=== PATIENT | female | born 1965 | race Caucasian/White ===

== ENCOUNTER 2019-10-06 10:12 | Outpatient (CLI) | payer BC, SELFPAY ==
--- NOTE | ~2019-10-06 | MM_ITS ---
EXAMINATION: MM screening [facility] BI w giuseppe HISTORY: Screening mammogram TECHNIQUE: Craniocaudal and mediolateral oblique 3-D tomosynthesis images were obtained and synthetic 2-D images were generated. CAD analysis was submitted and interpreted. COMPARISON: No prior mammogram is available for comparison at this institution. BREAST PARENCHYMAL COMPOSITION: The breasts are heterogeneously dense, which may obscure small masses . FINDINGS: Possible approximately 4 x 6 mm mass in the posterior medial mid right breast (craniocaudal Tomosynthesis image 40/81; MLO Tomosynthesis image 43/76 and) Otherwise there is no evidence of suspicious mass, calcification, or architectural distortion to sugg est malignancy in either breast. There has been no other suspicious interval change. IMPRESSION: 1. Right breast mass 2. Diagnostic right mammogram and right breast ultrasound examination are recommended. BI-RADS Category 0: Incomplete: Needs additional imaging evaluation. Reviewed, dictated and finalized at location A. IMPRESSION: 1. Right breast mass 2. Diagnostic right mammogram and right breast ultrasound examination are recom mended. BI-RADS Category 0: Incomplete: Needs additional imaging evaluation.
== END 2019-10-06 10:13 | disposition home or self-care (01) ==
PROVIDERS: PCP Family Medicine; Visit Provider Family Medicine
DX: Z12.31 Encounter for screening mammogram for malignant neoplasm of breast (principal); R92.8 Other abnormal and inconclusive findings on diagnostic imaging of breast
CPT/HCPCS: 77063; 77067

== ENCOUNTER 2019-10-27 12:18 | Outpatient (CLI) | payer BC, SELFPAY ==
--- NOTE | ~2019-10-27 | MMUS_ITS ---
EXAMINATION: MM diagnostic mammo unilat RT, US breast RT limited HISTORY: 4 x 6 mm mass reported in posterior medial right breast TECHNIQUE: Additional 3-D tomosynthesis images of the right breast were performed and synthetic 2-D i mages were generated. CAD analysis was submitted and interpreted. High resolution upper inner right b reast ultrasound was performed. COMPARISON: 10/06/2019 bilateral digital screening mammogram FINDINGS: MAMMOGRAPHIC FINDINGS: A 5 mm circumscribed mass is suggested posteriorly in the upper inner right breast. Ultrasound of th e upper inner breast was performed. ULTRASOUND: 1:00 7 cm from nipple: 4.6 mm simple cyst with through transmission 1:00 3 cm from nipple: 3 mm cyst. No suspicious mass or shadowing is detected. IMPRESSION: 1. No mammographic evidence of malignancy 2. Annual mammographic screening is recommended. BI-RADS Category 2: Benign finding(s). Reviewed, dictated and finalized at location A. IMPRESSION: 1. No mammographic evidence of malignancy 2. Annual mammographic screening is recommended. BI-RADS Category 2: Benign finding(s).
== END 2019-10-27 12:19 | disposition home or self-care (01) ==
LOC: ANHIMG 12:19
PROVIDERS: PCP Family Medicine; Visit Provider Family Medicine
DX: R92.8 Other abnormal and inconclusive findings on diagnostic imaging of breast (principal)
CPT/HCPCS: 76642; 77065

== ENCOUNTER → 2020-12-26 17:26 | Outpatient (CLI) | payer BC, SELFPAY ==
--- NOTE | ~2020-12-26 | DEXA_ITS ---
Bone Density Report Name: Mary Pressley Age: 55 Sex: Female Ethnicity: White Date of : 1965 Indication: osteopenia; monitoring treatment; height loss; hysterectomy; Referring Provider: HUNTER, DREAD Ji Study: Bone densitometry was performed. Exam Date: December 26, 2020 Accession number: [id number] Bone Density: Region BMD T-score Z-score Classification AP Spine (L1-L4) 0.962 -0.8 0.5 Normal Femoral Neck (Left) 0.730 -1.1 0.1 Osteopenia Total Hip (Left) 0.873 -0.6 0.2 Normal Femoral Neck (Right) 0.681 -1.5 -0.3 Osteopenia Total Hip (Right) 0.810 -1.1 -0.3 Osteopenia Total Hip Mean 0.842 -0.9 -0.1 Normal World Health Organization criteria for BMD impression classify patients as: Normal (T-score at or above -1.0), Osteopenia (T-score between -1.0 and -2.5), or Osteoporosis (T-score at or below -2.5). 10-year Fracture Risk: FRAX not reported because: Treated for osteoporosis Previous Exams: Region Exam Age BMD T-score BMD Change BMD Change Date g/cm2 vs Baseline vs Previous AP Spine(L1-L4) 12/26/2020 55 0.962 -0.8 -0.054* -0.041* 07/15/2018 53 1.003 -0.4 -0.013 0.040* 10/26/2015 50 0.963 -0.8 -0.053* -0.053* 09/30/2013 48 1.016 -0.3 Total Hip(Left) 12/26/2020 55 0.873 -0.6 -0.025 0.019 07/15/2018 53 0.855 -0.7 -0.044* -0.013 10/26/2015 50 0.867 -0.6 -0.032* -0.032* 09/30/2013 48 0.899 -0.4 Total Hip(Right) 12/26/2020 55 0.810 -1.1 -0.032* 0.011 07/15/2018 53 0.799 -1.2 -0.043* -0.033* 10/26/2015 50 0.832 -0.9 -0.010 -0.010 09/30/2013 48 0.842 -0.8 *Denotes significance at 95% confidence level, LSC for AP Spine = 0.022 g/cm2, LSC for Total Hip = 0.027 g/cm2 Clinical Information Provided by Patient: Is being treated for osteoporosis Has used the following medications: HRT (i.e. estrogen/hormone therapy), Vitamin D Has the following medical conditions: Hysterectomy Patient maximum height was 63 Menopause Age: 49 Does not regularly consume dairy products Drinks caffeinated beverages Onset of menses at age 12 Number of children 2 Missed period for more than 6 months in a row Impression: The patient has low bone mass, based on the Right Femoral Neck T-score. The BMD for the AP Spine(L1-L4) decreased, changing by -0.041 since the last DXA
--- NOTE | ~2020-12-26 | MM_ITS ---
EXAMINATION: MM screening [facility] BI w giuseppe HISTORY: Screening mammogram TECHNIQUE: Craniocaudal and mediolateral oblique 3-D tomosynthesis images were obtained and synthetic 2-D images were generated. CAD analysis was submitted and interpreted. COMPARISON: 10/27/2019, 10/06/2019, 07/29/2018, 07/15/2018 BREAST PARENCHYMAL COMPOSITION: There are scattered areas of fibroglandular density. FINDINGS: There is no evidence of suspicious mass, calcification, or architectural distortion to sugg est malignancy in either breast. There has been no suspicious interval change. IMPRESSION: 1. No mammographic evidence of malignancy. 2. Recommend routine screening mammography in one year. BI-RADS Category 1: Negative Reviewed, dictated and finalized at location A.
== END ==
PROVIDERS: PCP Family Medicine; Visit Provider Family Medicine
DX: Z12.31 Encounter for screening mammogram for malignant neoplasm of breast (principal); Z78.0 Asymptomatic menopausal state; M85.852 Other specified disorders of bone density and structure, left thigh; M85.851 Other specified disorders of bone density and structure, right thigh
CPT/HCPCS: 77063; 77067; 77080

== ENCOUNTER → 2021-12-31 11:33 | Outpatient (CLI) | payer OTHER, SELFPAY ==
--- NOTE | ~2021-12-31 | MM_ITS ---
EXAMINATION: MM screening [facility] BI w giuseppe HISTORY: Screening mammogram TECHNIQUE: Craniocaudal and mediolateral oblique 3-D tomosynthesis images were obtained and synthetic 2-D images were generated. CAD analysis was submitted and interpreted. COMPARISON: 12/26/2020, 10/27/2019, 10/06/2019, 07/29/2018, 07/15/2018 BREAST PARENCHYMAL COMPOSITION: The breasts are heterogeneously dense, which may obscure small masses . FINDINGS: RIGHT BREAST: There is a mass in the far posterior third of the slightly outer breast 9 cm from the n ipple. LEFT BREAST: There is no suspicious mass, calcification, or architectural distortion to suggest malig alberto. There has been no significant interval change. IMPRESSION: 1. Indeterminate right breast mass. 2. Additional mammographic views and possible breast ultrasound are recommended. BI-RADS Category 2: Benign finding(s). Reviewed, dictated and finalized at location A. IMPRESSION: 1. Indeterminate right breast mass. 2. Additional mammographic views and possible breast ultrasound are recommended . BI-RADS Category 2: Benign finding(s).
== END ==
PROVIDERS: PCP Family Medicine; Visit Provider Family Medicine
DX: Z12.31 Encounter for screening mammogram for malignant neoplasm of breast (principal); R92.8 Other abnormal and inconclusive findings on diagnostic imaging of breast
CPT/HCPCS: 77063; 77067

== ENCOUNTER → 2022-01-22 07:42 | Outpatient (CLI) | payer OTHER, SELFPAY ==
--- NOTE | ~2022-01-22 | MMUS_ITS ---
EXAMINATION: MM diagnostic jose RT w giuseppe, US breast RT limited HISTORY: Right breast mass on screening mammogram TECHNIQUE: Additional 3-D tomosynthesis images of the right breast were performed and synthetic 2-D i mages were generated. CAD analysis was submitted and interpreted. High resolution limited right breas t ultrasound was performed. COMPARISON: 12/31/2021, 12/26/2020, 10/27/2019, 10/06/2019 FINDINGS: MAMMOGRAPHIC FINDINGS: There is a 6 mm obscured equal density mass in the posterior third of the outer breast at the 9:00 lo cation 9 cm from the nipple. There is a 6 mm obscured low density mass in the middle/posterior third of the outer breast at 8:00 location 6 cm from the nipple. ULTRASOUND: There are cysts at the 5:00 and 9:00 locations in the breast corresponding to the mammographic findin gs. There is a 10 mm x 5 mm irregular, parallel, hypoechoic mass with no posterior features or trestle mainternance laborer al vascularity at the 9:00 location 6 cm from the nipple. No definite mammographic correlate is ident ified for the mass. IMPRESSION: 1. Indeterminate sonographically detected mass at the 9:00 location 6 cm from the nipple. 2. Ultrasound-guided biopsy is recommended. BI-RADS category 4, suspicious findings. Reviewed, dictated and finalized at location A. IMPRESSION: 1. Indeterminate sonographically detected mass at the 9:00 location 6 cm from t he nipple. 2. Ultrasound-guided biopsy is recommended. BI-RADS category 4, suspicious findings.
== END ==
PROVIDERS: PCP Family Medicine; Visit Provider Family Medicine
DX: R92.8 Other abnormal and inconclusive findings on diagnostic imaging of breast (principal)
CPT/HCPCS: 76642; 77061; 77065; G0279

== ENCOUNTER 2022-02-02 12:32 | Outpatient (CLI) | payer OTHER, SELFPAY ==
--- NOTE | ~2022-02-02 | MMUS_ITS ---
EXAMINATION: US breast biopsy RT w image, MM post biopsy invasive RT DATE: 02/02/2022 14:04 (accession [id number]), 02/02/2022 14:05 (accession [id number]) INDICATION: Indeterminate mass in the outer right breast at the 9:00 location Ultrasound-guided core biopsy is requested to evaluate for malignancy. TECHNIQUE AND FINDINGS: The risks and potential benefits of the procedure were discussed with the patient including bleeding and infection. A time out was performed. The skin of the right breast was prepared and draped in usua l sterile fashion. 1% lidocaine was used for superficial anesthesia. 1% lidocaine with epinephrine wa s used for deep anesthesia. A vacuum-assisted biopsy needle was advanced through to the outer edge of the region of interest from a lateral approach utilizing sonographic guidance. A total of three tissue core samples were obtaine d through the lesion. A tissue marker clip was then placed at the biopsy site. Hemostasis was achieve d. A sterile bandage was applied. The patient tolerated procedure well and there was no evidence of immediate complication. The patient was given verbal instructions to return to the Emergency Department in the event of severe breast pa in or rapid breast enlargement. A two view right breast mammogram was obtained to document tissue mar ker clip placement. IMPRESSION: 1. Successful ultrasound-guided vacuum-assisted biopsy of right breast mass with tissue marker placem ent. Reviewed, dictated and finalized at location A. IMPRESSION: 1. Successful ultrasound-guided vacuum-assisted biopsy of right breast mass wit h tissue marker placement.
== END 2022-02-02 12:33 | disposition home or self-care (01) ==
PROVIDERS: PCP Family Medicine; Visit Provider Physician Assistant
DX: R92.8 Other abnormal and inconclusive findings on diagnostic imaging of breast (principal); N60.11 Diffuse cystic mastopathy of right breast
CPT/HCPCS: 19083; 88305; A4648

== ENCOUNTER 2023-04-22 07:28 | Outpatient (CLI) | payer OTHER, SELFPAY ==
--- NOTE | ~2023-04-22 | MM_ITS ---
EXAMINATION: MM screening [facility] BI w giuseppe HISTORY: Screening mammogram TECHNIQUE: Craniocaudal and mediolateral oblique 3-D tomosynthesis images were obtained and synthetic 2-D images were generated. CAD analysis was submitted and interpreted. COMPARISON: 02/02/2022 ultrasound-guided biopsy of right breast 01/22/2022 diagnostic right mammogram and limited right breast ultrasound 12/31/2021, 12/26/2020 bilateral screening mammogram examinations BREAST PARENCHYMAL COMPOSITION: The breasts are heterogeneously dense, which may obscure small masses . FINDINGS: Biopsy marker on the right, posterior outer mid right breast; history of benign biopsy resu lt. There is focal asymmetry in the posterior outer left breast on CC projection. Diagnostic left mammog stevie is recommended, with ultrasound if required. Otherwise there is no evidence of suspicious mass, calcification, or architectural distortion to sug gest malignancy in either breast. There has been no other suspicious interval change. IMPRESSION: 1. Asymmetric density in posterior outer left breast 2. Diagnostic left mammogram is recommended, with ultrasound if required BI-RADS Category 0: Incomplete: Needs additional imaging evaluation. Reviewed, dictated and finalized at location A. NESS BROKER
--- NOTE | ~2023-04-22 | DEXA_ITS ---
Bone Density Report Name: CAROLINA NORIEGA Age: 57 Sex: Female Ethnicity: White Date of : 1965 Indication: postmenopausal; screening for osteoporosis; height loss; hysterectomy; Referring Provider: EUN BUSTAMANTE Study: Bone densitometry was performed. Exam Date: April 22, 2023 Accession number: [id number] Bone Density: Region BMD T-score Z-score Classification AP Spine(L1-L4) 0.973 -0.7 0.7 Normal Femoral Neck (Left) 0.712 -1.2 0.0 Osteopenia Total Hip (Left) 0.859 -0.7 0.3 Normal Femoral Neck (Right) 0.643 -1.9 -0.6 Osteopenia Total Hip (Right) 0.816 -1.0 -0.1 Normal Total Hip Mean 0.837 -0.9 0.1 Normal World Health Organization criteria for BMD impression classify patients as: Normal (T-score at or above -1.0), Osteopenia (T-score between -1.0 and -2.5), or Osteoporosis (T-score at or below -2.5). 10-year Fracture Risk(1): Major Osteoporotic Fracture 9.0% Hip Fracture 1.0% Reported Risk Factors: [place] (), Neck BMD=0.643, BMI=25.7 (1) FRAX(R) Version 3.08. Fracture probability calculated for an untreated patient. Fracture probability may be lower if the patient has received treatment. Clinical Information Provided by Patient: Has used the following medications: Vitamin D Has the following medical conditions: Hysterectomy Patient maximum height was 63 Menopause Age: 49 Does not regularly consume dairy products Drinks caffeinated beverages Onset of menses at age 12 Number of children 2 Impression: The patient has low bone mass, based on the Right Femoral Neck T-score. The patient has an estimated ten-year risk of hip fracture of 1% and an estimated ten-year risk of major fracture of 9%, based on the WHO FRAX algorithm. Discussion: BONE DENSITY IS LOW AT ONE OR MORE SKELETAL SITES. This patient's lowest T-score is low at one or more skeletal sites. It meets the World Health Organization's (WHO) criteria for ?low bone mass? (T-score between -1.0 and -2.5). The patient's 10-year risk of fracture as calculated by FRAX is less than the threshold where pharmacological therapy is recommended by the National Osteoporosis Foundation (NOF). However, all treatment decisions require clinical judgment and consideration of individual patient factors, including patient preferences, comorbidities, previous drug use, risk factors not captured in the FRAX model (e.g., frailty, falls, vitamin D deficiency, increased bone turnover, interval significant decline in bone density) and possible under or overestimation of fracture risk by FRAX. The patient should follow a healthful lifestyle (good nutrition with adequate calcium and vitamin D, and appropriate weight-bearing exercise). Follow-Up: Consider repeating this study in 2 to 3 years to reassess this patient's status, or sooner if there is some new clinical indication. Reported by: JULIO CESAR on
== END 2023-04-22 07:29 | disposition home or self-care (01) ==
PROVIDERS: PCP Family Medicine; Visit Provider Family Medicine
DX: Z12.31 Encounter for screening mammogram for malignant neoplasm of breast (principal); Z78.0 Asymptomatic menopausal state; R92.8 Other abnormal and inconclusive findings on diagnostic imaging of breast; M85.852 Other specified disorders of bone density and structure, left thigh; M85.851 Other specified disorders of bone density and structure, right thigh
CPT/HCPCS: 77063; 77067; 77080

== ENCOUNTER 2023-05-21 12:13 | Outpatient (CLI) | payer OTHER, SELFPAY ==
--- NOTE | ~2023-05-21 | MMUS_ITS ---
EXAMINATION: MM diagnostic jose LT w giuseppe, US breast LT complete HISTORY: Follow-up left breast asymmetries TECHNIQUE: Additional 3-D tomosynthesis images of the left breast were performed and synthetic 2-D im ages were generated. CAD analysis was submitted and interpreted. High resolution complete left breast ultrasound was performed. COMPARISON: Comparison to multiple prior studies sequentially, with oldest reviewed study dated 12/26. BREAST PARENCHYMAL COMPOSITION: The breasts are heterogeneously dense, which may obscure small masses FINDINGS: MAMMOGRAPHIC FINDINGS: There are scattered asymmetries in the left breast without discrete mass. No suspicious architectural distortion or clustered calcifications. ULTRASOUND: Complete US of all 4 quadrants of the left breast and retroareolar region was reviewed. There are mul tiple cysts of the left breast including a complicated cyst at 1:00 near the nipple measuring 6 mm. At 4:00, 4 cm from the nipple there is an irregular shaped heterogeneous hypoechoic mass measuring 7 mm without posterior features. IMPRESSION: 1. Abnormal irregular shape 7 mm left breast mass at 4:00, 4 cm from the nipple. 2. Ultrasound-guided left breast biopsy recommended. BI-RADS category 4, suspicious findings. Reviewed, dictated and finalized at location A. RT FREIGHT MANAGER IMPRESSION: 1. Abnormal irregular shape 7 mm left breast mass at 4:00, 4 cm from the nipple . 2. Ultrasound-guided left breast biopsy recommended. BI-RADS category 4, suspicious findings.
== END 2023-05-21 12:14 | disposition home or self-care (01) ==
LOC: ANHIMG 12:15
PROVIDERS: PCP Family Medicine; Visit Provider Family Medicine
DX: R92.8 Other abnormal and inconclusive findings on diagnostic imaging of breast (principal)
CPT/HCPCS: 76641; 77061; 77065; G0279

== ENCOUNTER 2023-06-09 08:54 | Outpatient (CLI) | payer OTHER, SELFPAY ==
--- NOTE | ~2023-06-09 | US_ITS ---
US axilla LT DATE: 06/09/2023 10:01 INDICATION: Unspecified left breast lump TECHNIQUE: Real-time imaging of the left axillary soft tissues COMPARISON: None FINDINGS: No suspicious mass or shadowing, adenopathy or other significant abnormality is detected. IMPRESSION: Negative Reviewed, dictated and finalized at Location A. Reviewed, dictated and finalized at location B. 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
--- NOTE | ~2023-06-09 | US_ITS ---
US breast LT limited DATE: 06/09/2023 09:58 INDICATION: Patient presented for ultrasound-guided biopsy of left breast 4:00 lesion 4 cm from nippl e TECHNIQUE: Real-time and color flow imaging targeted at left breast 4:00 4 cm from nipple COMPARISON: 05/21/2023 diagnostic left mammogram and complete left breast ultrasound 04/22/2023 bilateral screening mammogram FINDINGS: The technologist scanned the patient. The radiologist was present as well during additional scanning, with demonstration of the findings to the patient. There is a smooth circumscribed area of mixed somewhat tubular hypoechoic echogenicity and intervening areas hyperechogenicity consistent wi th fat, without suspicious shadowing or suspicious vascularity. The area has a benign appearance. The re are no suspicious sonographic features for malignancy. IMPRESSION: BI-RADS Category 2: Benign Recommendation: Routine annual mammographic screening Reviewed, dictated and finalized at Location A. Reviewed, dictated and finalized at location A. ROAD BRAKE OPERATOR
== END 2023-06-09 08:55 | disposition home or self-care (01) ==
LOC: ANHIMG 08:56
PROVIDERS: PCP Family Medicine; Visit Provider Surgery
DX: R92.8 Other abnormal and inconclusive findings on diagnostic imaging of breast (principal); N63.20 Unspecified lump in the left breast, unspecified quadrant
CPT/HCPCS: 76642; 76882

== ENCOUNTER 2023-09-09 10:14 | Outpatient (CLI) | payer OTHER, SELFPAY ==
--- NOTE | ~2023-09-09 | MMUS_ITS ---
EXAMINATION: MM diagnostic jose LT w giuseppe, US breast LT complete HISTORY: Follow-up of 4:00 7 mm mass TECHNIQUE: ML, MLO and CC 3-D tomosynthesis images of the left breast were performed and synthetic 2- D images were generated. CAD analysis was submitted and interpreted. High resolution complete left br east ultrasound examination including all 4 quadrants and subareolar area was performed. COMPARISON: June 09, 2023 Limited left breast ultrasound 05/21/2023 diagnostic left mammogram incomplete left breast ultrasound 04/22/2023 bilateral screening mammogram 8. Slice bilateral screening mammogram BREAST PARENCHYMAL COMPOSITION: The breasts are heterogeneously dense, which may obscure small masses . FINDINGS: MAMMOGRAPHIC FINDINGS: No suspicious mammographic mass or architectural distortion, malignant calcification, skin thickening or retraction or significant new or developing density is detected. ULTRASOUND: There are scattered simple and septated cysts. No suspicious solid mass or suspicious shadowing is de tected. IMPRESSION: 1. No evidence of malignancy 2. Routine annual mammographic screening is recommended BI-RADS Category 2: Benign finding(s). Reviewed, dictated and finalized at location B. IMPRESSION: 1. No evidence of malignancy 2. Routine annual mammographic screening is recommended BI-RADS Category 2: Benign finding(s).
== END 2023-09-09 10:15 | disposition home or self-care (01) ==
PROVIDERS: PCP Family Medicine; Visit Provider Surgery
DX: R92.8 Other abnormal and inconclusive findings on diagnostic imaging of breast (principal); N63.20 Unspecified lump in the left breast, unspecified quadrant
CPT/HCPCS: 76641; 77061; 77065; G0279

== ENCOUNTER 2024-05-30 11:17 | Outpatient (CLI) | payer OTHER, SELFPAY ==
--- NOTE | ~2024-05-30 | MMUS_ITS ---
EXAMINATION: MM diagnostic jose BI w giuseppe, US breast LT complete HISTORY: Left breast mass TECHNIQUE: Additional 3-D tomosynthesis images of the left breast were performed and synthetic 2-D im ages were generated. CAD analysis was submitted and interpreted. High resolution complete left breast ultrasound was performed. COMPARISON: Comparison to multiple prior studies sequentially, with oldest reviewed study dated 12/31. BREAST PARENCHYMAL COMPOSITION: Dense: The breasts are heterogeneously dense, which may obscure small masses FINDINGS: MAMMOGRAPHIC FINDINGS: The right breast is stable without evidence for malignancy. Nodular asymmetries in the left breast lo cated centrally are less apparent with current study. There is no suspicious architectural distortion or clustered calcifications. ULTRASOUND: Complete US of all 4 quadrants of the left breast/s and retroareolar region was reviewed. At 12:00, 2 cm from the nipple there is an oval parallel oriented hypoechoic mass measuring 6 mm with low-level internal echoes, likely benign. At 1:00 near the nipple is a cluster of microcysts measuring 7 mm. At 4:00, 5 cm from the nipple there is a cluster of microcysts measuring 8 mm. At 4:00, 4 cm from the n ipple there is a small cluster of microcysts. IMPRESSION: 1. Likely benign left breast mass located at 12:00, 2 cm from the nipple, which appears different in morphology compared with prior examination. This mass measures 6 mm with low-level internal echoes. 2. Recommend 6 month follow-up Limited left breast ultrasound. BI-RADS category 3, probably benign findings. Reviewed, dictated and finalized at location [facility] IMPRESSION: 1. Likely benign left breast mass located at 12:00, 2 cm from the nipple, which appears different in morphology compared with prior examination. This mass edy sures 6 mm with low-level internal echoes. 2. Recommend 6 month follow-up Limited left breast ultrasound. BI-RADS category 3, probably benign findings.
--- OUTSIDE RECORDS SUMMARY | 2024-05-30 12:27 | XMS_ITS | Continuity of Care Document ---
Author Organization [facility] Address [address] [place] [address] Phone Care Team Providers Care Interventional Radiology Tech Name Role Phone Pruitt OD, Unavailable Unavailable Procedures Procedure Date Eye Exam & Treatment Refraction Eye Exam, New Patient Refraction Advance Directives Directive Yes / No Effective Date File Name No Information Encounters Encounter Description Practice Location Reason(s) For Visit Diagnoses Date Provider Providers Copied on Encounter [facility], [address] [place] [address] [address], [place], [place], [id number], tel:[phone] [facility] No Information Mar-2 0-201 0 Pruitt OD . [address], [place], [address], [place]. tel:[phone] [facility], [address] [place] [address] [address], [place], [place], [id number], tel:[phone] [facility] No Information Mar-0 7-200 9 Pruitt OD . [address], [place], [address], [place]. tel:[phone] Family History Family Member Type Diagnosis Age At Onset No Information Payers Payer name Insurance type Covered constitution party ID Authoriza tielzbieta(s) [employer] Plan 09 [id number] Social History Type Description Quantity Date Captured Comments Sex Female Smoking Status No Information Chief Complaint And Reason For Visit No Information Reason For Referral Reason For Referral No Information History Of Present Illness Encounter Date Complaint History Of Prese nt Illness No Information Functional Status Date Functional Assessmen t No Information Instructions Date Instruction Additional Infor mation No Information Assessments Type Assessment Date No Information Patient Care Teams Name Effective Dates (start - stop) Status Members No Information
--- OUTSIDE RECORDS SUMMARY | 2024-05-30 12:27 | XMS_ITS | CONTINUITY OF CARE DOCUMENT ---
Author Name louis myers Address Unknown Organization [facility] Address [address] [place] [address] Phone [phone] Care Team Providers Care Field Operations Coordinator Name Role Phone louis myers Unavailable Unavailable
--- OUTSIDE RECORDS SUMMARY | 2024-05-30 12:27 | XMS_ITS | Referral Summary ---
Author Organization [facility] Address [address] [place] [address] Care Team Providers Care Dope House Operator Helper Name Role Phone Irena Robin MD Primary Care Provider + Allergies No known active allergies Medications cholecalciferol (VITAMIN D-3) 2,000 unit tablet Take 2,000 Units by mouth daily. Active Active Problems Problem Noted Date Diagnosed Date NICK (dyspnea on exertion) 09/20/2017 Palpitations 09/20/2017 Elevated blood pressure read ing in office without diagnosis of hypertension 09/20/2017 Dyslipidemia 09/20/2017 Social History Tobacco Use Types Packs/Day Years Used Date Smoking Tobacco: Never Smokeless Tobacco: Never Alcohol Use Standard Drinks/Week Comments Yes 0 (1 standard drink = 0.6 oz pur e alcohol) very rarely Personal Safety Answer Date Recorded Getting School Help Needed Not on file 07/16 Comments Unknown Sex and Gender Information Value Date Recorded Sex Assigned at Not on file Legal Sex Female 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 Gender Identity Not on file Sexual Orientation Not on file Last Filed Vital Signs Vital Sign Reading Time Taken Comments Blood Pressure 136/80 09/20/2017 1:11 PM CDT Pulse 97 09/20/2017 1:11 PM CDT Temperature - - Respiratory Rate - - Oxygen Saturation 98% 09/20/2017 1:11 PM CDT Inhaled Oxygen Concentration - - Weight 68.5 kg (151 lb) 09/20/2017 1:11 PM CDT Height 157.5 cm (5' 2 ) 09/20/2017 1:11 PM CDT Body Mass Index 27.62 09/20/2017 1:11 PM CDT Plan of Treatment Not on file Insurance [employer] [place] [address] Care Teams Dope House Operator Helper Relationship Specialty Start Date End Date Irena Robin MD PCP - General 09/08/17
--- OUTSIDE RECORDS SUMMARY | 2024-05-30 12:27 | XMS_ITS | Clinical Summary ---
Author Organization [facility] [place] Address [address] [place] [address] Phone Care Team Providers Care Hvac/R Instructor Name Role Phone Unavailable Primary Care Provider Unavailabl e Allergies No known active allergies Medications No known medications Active Problems Patient Care Coordination No te Formatting of this note migh t be different from the original. Primary Care: No primary provider on file. Referring Provider: Nila Rizzo [address] [facility] [address] [place] [address] Other: Problem Noted Date Diagnosed Date Breast mass 02/02/2011 History of skin cancer Family History Medical History Relation Name Comments Breast Cancer Maternal Cousin Relation Name Status Comments Maternal Cousin Alive Social History Tobacco Use Types Packs/Day Years Used Date Smoking Tobacco: Never Smokeless Tobacco: Never Alcohol Use Standard Drinks/Week Comments Yes 0 (1 standard drink = 0.6 oz pur e alcohol) rare Comments No Sex and Gender Information Value Date Recorded Sex Assigned at Not on file 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 Gender Identity Not on file Sexual Orientation Not on file Last Filed Vital Signs Vital Sign Reading Time Taken Comments Blood Pressure 140/76 02/02/2011 10:23 AM CDT Pulse - - Temperature - - Respiratory Rate - - Oxygen Saturation - - Inhaled Oxygen Concentration - - Weight 62.1 kg (137 lb) 02/02/2011 10:23 AM CDT Height 160 cm (5' 3 ) 02/02/2011 10:23 AM CDT Body Mass Index 24.27 02/02/2011 10:23 AM CDT Plan of Treatment Health Maintenance Due Date Last Done Comments DTAP/TDAP/TD VACCINES (1 - Tdap) 1982 CERVICAL CANCER SCREENING 1993 COLORECTAL SCREENING 2008 Colorectal Cancer Screening 2008 FIT-DNA Q 3 years 2008 FIT/FOBT Q 1 year 2008 Flex Sig/CT Colonography Q 5 years 2008 BREAST CANCER SCREENING 01/24/2012 01/24/20 11, 04/29/2009, 02/13/2008 ZOSTER VACCINE (1 of 2) 2013 INFLUENZA VACCINE (#1) 2023 RSV VACCINE (60+ or ) (1 - 1-dose 75+ series) 2038 HEPATITIS B VACCINES Aged Out No long er eligible based on patient's age to complete this topic PNEUMOCOCCAL VACCINE 0-64 YEARS Aged Out No longer eligible b ased on patient's age to complete this topic Procedures Procedure Name Priority Date/Time Associated Diagnosis Comments MAMMO SCREEN BILAT W OR WO CAD Routine 01/23/2011 from Last 3 Months or Most Recently Relevant to Health Maintenance Results * MAMMO DIGITAL SCREEN BILAT (01/23/2011) Anatomical Region Laterality Modality Breast Bilateral Other Nila Rizzo MD MAMMO ORDERABLES Final R esult from Last 3 Months or Most Recently Relevant to Health Maintenance Insurance
--- OUTSIDE RECORDS SUMMARY | 2024-05-30 12:27 | XMS_ITS | Patient Health Summary ---
Author Organization [facility] Address [address] [place] [address] Care Team Providers Care Planning Specialist Name Role Phone Unavailable Primary Care Provider Unavailabl e Note from [facility],non-owned Affiliates and Associated Physician Practices is amultiple site organization consisting of ambulatory clinics and hospital sitesin [place], [place], [place] and [place]. This disclosure is being madepursuant to the Care Everywhere program and may not contain all information available regarding this patient. Last updated 18.[facility] Social History Tobacco Use Types Packs/Day Years Used Date Smoking Tobacco: Never Assessed Sex and Gender Information Value Date Recorded Sex Assigned at Not on file Gender Identity Not on file Sexual Orientation Not on file Procedures * FROZEN SECTION(Performed 07/27/1996) Results * FROZEN SECTION (07/27/1996 9:02 AM TRADES HELPER) Result CASE NUMBER [id number] Comment: ORDERING PHYSICIAN ??SANGEETA CASILLAS SPECIMEN TYPE ?Lesion-lip rt side Date ? 07/27/1996 Physician ?Angela Casillas Gross Description ? A specimen is received fresh for frozen section examination and labeled with the patient's name and identified as skin ellipse from lip, right side . ??The specimen consists of a skin ellipse which measures 2 cm x 0.7 x 0.5 cm, centrally located are small oval round reddish lesion is present. ??This lesion measures approximately 0.2 cm in diameter. ??The surgical margins were inked and the tissue was sectioned in classic method and submitted as A, cross section through the center of the skin ellipse, including the lesion as B ??tips of the skin ellipse. ??JW/kn Microscopic Exam ? Microscopic examination of the sections FSA and B reveal a basal cell carcinoma. ??Margins of excision free of tumor involvement. ?? Diagnosis ? I. ??Cutaneous tissue, lip, right side ? A. ??Basal cell carcinoma. ? B. ??Complete excision. ?? *Snomed Code 1 ? [id number] - [id number] Boiler House Inspector ? kn Pathologist ?Cosme Villa M.D. MISCELLANEOUS SAMPLES / Unknown 07/27/1996 9:02 AM TRADES HELPER 07/27/1996 9:02 AM TRADES HELPER Historical Provider LAB - PATHOLOGY/C YTOLOGY ORDERABLES
--- OUTSIDE RECORDS SUMMARY | 2024-05-30 12:27 | XMS_ITS | Referral Summary ---
Author Organization [facility] Address [address] [place] [address] Care Team Providers Care Copywriting Intern Name Role Phone Unavailable Primary Care Provider Unavailabl e Source Comments [facility],non-owned Affiliates and Associated Physician Practices is amultiple site organization consisting of ambulatory clinics and hospital sitesin [place]. This disclosure is being madepursuant to the Care Everywhere program and may not contain all information available regarding this patient. Last updated 18.[facility] Social History Tobacco Use Types Packs/Day Years Used Date Smoking Tobacco: Never Assessed Sex and Gender Information Value Date Recorded Sex Assigned at Not on file Gender Identity Not on file Sexual Orientation Not on file Plan of Treatment Not on file
--- OUTSIDE RECORDS SUMMARY | 2024-05-30 12:27 | XMS_ITS | Clinical Summary ---
Author Organization [facility] Address [address] [place] [address] Care Team Providers Care Regional Wildlife Agent Name Role Phone Irena Robin MD Primary Care Provider + Allergies No known active allergies Medications cholecalciferol (VITAMIN D-3) 2,000 unit tablet Take 2,000 Units by mouth daily. Active Active Problems Problem Noted Date Diagnosed Date NICK (dyspnea on exertion) 09/20/2017 Palpitations 09/20/2017 Elevated blood pressure read ing in office without diagnosis of hypertension 09/20/2017 Dyslipidemia 09/20/2017 Surgical History Surgery Date Site/Laterality Comments [place] TONSILLECTOMY PRIMARY/SECONDARY <AGE 12 Tonsillectomy - (Added by Conv) [place] LIG/TRNSXJ FLP TUBE ABDL/ VAG APPR UNI/BI Tubal Ligation - (Added by TW Conv) WA LAPS ABD PRTM&OMENTUM DX W/WO SPEC BR/WA SPX Laparoscopy (Diagnostic) - (Added by TW Conv) [place] UNLISTED PROCEDURE ABDOME N PERITONEUM & OMENTUM Hernia Repair - (Added by TW Conv) HYSTERECTOMY FLUORO GUIDED INJECTION LATASHAU LUÍSER RIGHT 12/29/2018 Right Medical History Medical History Date Comments Basal cell carcinoma Squamous cell carcinoma Family History Medical History Relation Name Comments Hypertension Father Family history of hypertension - (Added by TW Conv) Hypertension Mother Family history of hypertension - (Added by TW Conv) Relation Name Status Comments Father Mother Social History Tobacco Use Types Packs/Day Years [...] on file 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 Gender Identity Not on file Sexual Orientation Not on file Obstetrics History Last Filed Vital Signs Vital Sign Reading [...] 09/20/2017 1:11 PM CDT Plan of Treatment Health Maintenance Due Date Last Done Comments Colon Cancer Screening-Colonoscopy 1963 Depression Screening 1963 Hepatitis C Screening 1963 Hepatitis B Screening 1981 Regular Well Visit/Exam 18-64 1981 Breast Cancer Screening-Mammogram 01/24/2012 01/23/2011, 01/23/2011 Zoster Vaccine (1 of 2) 2013 Covid-19 Vaccine (2023-2 5 season) 2024 03/11/2021, 07/18/2020, 06/27/2020 Influenza Vaccine (#1) 2024 2, 04/08/2020 DTaP/Tdap/Td Vaccine (2 - Td or Tdap) 09/15/2026 09/15/2016, 03/28/2001 Pneumococcal vaccine <65 Aged Out No longer eligible based on patient's age to complete this topic Insurance [facility] ACC[facility] Care Teams Regional Wildlife Agent Relationship Specialty Start Date End Date Irena Robin MD PCP - General 09/08/17
--- OUTSIDE RECORDS SUMMARY | 2024-05-30 12:27 | XMS_ITS | Clinical Summary ---
Author Organization [facility] Address [address] [place] [address]. [place], [place] [address] [place] [address] Care Team Providers Care Urgent Care Technician Name Role Phone Liliana Kaur NP Primary Care Provider [phone] Allergies No known active allergies Medications NON FORMULARY Active progesterone (PROMETRIUM) 200 MG capsule Take 200 mg by mouth daily. Active NON FORMULARY Estrogen 1.75mg capsule (bioidentical) Active NON FORMULARY Thyroid 1.75mg qd Active Nutritional Supplements (DHEA OR) Take 5 mg by mouth daily. Active vitamin D3, cholecalciferol , 5000 UNITS capsule Take 1 capsule by mouth daily. Active NON FORMULARY Testosterone topical cream 35mg Active Active Problems Problem Noted Date Diagnosed Date History of skin cancer 04/15/2022 Dyslipidemia 09/20/2017 Elevated blood pressure read ing in office without diagnosis of hypertension 09/20/2017 Immunizations Name Administration Dates Next Due Fluzone 6 Months+ Quad (0.5 mL Prefilled Syringe ) 04/15/2022 Influenza Adult (Generic) 04/08/2020 Td (TDVAX) 03/28/2001 Tdap (Generic) 09/15/2016 Social History Tobacco Use Types Packs/Day Years Used Date Smoking Tobacco: Never Smokeless Tobacco: Never Tobacco Cessation:Counseling Given: Not Answered Alcohol Use Standard Drinks/Week Comments Not Currently 0 (1 standard drink = 0.6 oz pur e alcohol) PHQ-2 Answer Date Recorded Patient Health Questionnaire-2 Score 0 04/15/2022 Comments No Sex and Gender Information Value Date Recorded Sex Assigned at Not on file 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 Sex Female 12:50 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 Gender Identity Not on file Sexual Orientation Not on file Last Filed Vital Signs Vital Sign Reading Time Taken Comments Blood Pressure 138/86 04/15/2022 10:22 AM STRUCTURAL IRON ERECTOR ma nual cuff Pulse 93 04/15/2022 10:22 AM STRUCTURAL IRON ERECTOR Temperature 36.9 ??C (98.5 ??F) 04/15/2022 10:[address] Respiratory Rate 16 04/15/2022 10:22 AM STRUCTURAL IRON ERECTOR Oxygen Saturation 99% 04/15/2022 10:22 AM STRUCTURAL IRON ERECTOR Inhaled Oxygen Concentration - - Weight 68.5 kg (151 lb) 04/15/2022 10:22 AM STRUCTURAL IRON ERECTOR Height 160 cm (5' 3 ) 04/15/2022 10:22 AM STRUCTURAL IRON ERECTOR Body Mass Index 26.75 04/15/2022 10:22 AM STRUCTURAL IRON ERECTOR Plan of Treatment Health Maintenance Due Date Last Done Comments Colorectal Cancer Screening Colonoscopy (10 Years) 1963 PHQ-2 (Physician Prosser) 1975 Hepatitis C 1981 Zoster Vaccines (1 of 2) 2013 Annual Physical 04/15/2023 04/15/2022 COVID-19 Vaccine (4 - 2023-2 5 season) 2024 03/11/2021, 07/18/2020, 06/27/2020 Mammogram Screening 01/23/2024 01/22/2022, 12/31/2021 Influenza Adult (#1) 2024 04/15/2022, 04/08/2020 PHQ-2 (Physician [employer]) 05/03/2024 DTaP, Tdap and Td Vaccines ( 2 - Td or Tdap) 09/15/2026 09/15/2016, 03/28/2001 RSV Immunization or 60+ Years (1 - 1-dose 75+ series) 2038 Meningococcal B Vaccine Aged Out No l onger eligible based on patient's age to complete this topic Meningococcal Vaccine Aged Out No ana miguel eligible based on patient's age to complete this topic Pneumococcal Vaccine: Pediatrics (0 to 5 Years) and At-Risk Patients (6 to 64 Years) Aged Out No longer eligible b ased on patient's age to complete this topic RSV Immunizations Under 20 Months Aged Out No longer eligible b ased on patient's age to complete this topic Procedures Procedure Name Priority Date/Time Associated Diagnosis Comments MAMMOGRAM GENERIC (SCAN ORDER) 01/22/2022 from Last 3 Months or Most Recently Relevant to Health Maintenance Results * MAMMOGRAM GENERIC (01/22/2022) Anatomical Region Laterality Modality Other 01/22/2022 us Doc Med Group Scanned SCANNING Final Resu lt from Last 3 Months or Most Recently Relevant to Health Maintenance Insurance [facility] Care Teams Urgent Care Technician Relationship Specialty Start Date End Date Liliana Kaur NP [address] [place] [address] PCP - General NURSE PRACTITIONER 10/04/22
--- OUTSIDE RECORDS SUMMARY | 2024-05-30 12:27 | XMS_ITS | Clinical Summary ---
Author Organization [facility] Address [address] [place] [address] Care Team Providers Care Custom Clothier Name Role Phone Unavailable Primary Care Provider Unavailabl e Source Comments [facility],non-owned Affiliates and Associated Physician Practices is amultiple site organization consisting of ambulatory clinics and hospital sitesin [place], [place] and [place]. This disclosure is being madepursuant to the Care Everywhere program and may not contain all information available regarding this patient. Last updated 18.[facility] Social History Tobacco Use Types Packs/Day Years Used Date Smoking Tobacco: Never Assessed Sex and Gender Information Value Date Recorded Sex Assigned at Not on file Gender Identity Not on file Sexual Orientation Not on file Plan of Treatment Health Maintenance Due Date Last Done Comments COLOGUARD (AGES 45-75) - COL ON CA SCREENING 1963 COLON MONITORING 1963 COLONOSCOPY - COLON CA SCREENING 1963 CT COLONOGRAPHY - COLON CA SCREENING 1963 Colorectal Cancer Screening 1963 FIT - COLON CA SCREENING 1963 FLEX SIG - COLON CA SCREENING 1963 LIPID TESTING 1963 MAMMOGRAM 1963 PAP SMEAR 1963 HIV SCREENING 1978 HEPATITIS C SCREENING 06/11/1981 DTAP/TDAP/TD VACCINES (1 - Tdap) 1982 PNEUMOCOCCAL VACCINE 50+ (1 of 1 - PCV) 2013 ZOSTER VACCINE (1 of 2) 2013 COVID-19 VACCINE ( - 2023-2 5 season) 2024 INFLUENZA VACCINE (#1) 2024 DEPRESSION SCREENING 05/03/2024 Respiratory Syncytial Virus (RSV) Vaccine Pt: or over 60 yrs (1 - 1-dose 75+ series) 2038 HEPATITIS B VACCINE Aged Out No longe r eligible based on patient's age to complete this topic HIB VACCINE Aged Out No longer eligi ble based on patient's age to complete this topic HPV VACCINE Aged Out No longer eligi ble based on patient's age to complete this topic MENINGOCOCCAL (Group B) VACCINE Aged Out No longer eligible based on patient's age to complete this topic MENINGOCOCCAL VACCINE Aged Out No ana miguel eligible based on patient's age to complete this topic PNEUMOCOCCAL VACCINE Aged Out No long er eligible based on patient's age to complete this topic
== END 2024-05-30 11:18 | disposition home or self-care (01) ==
LOC: ANHIMG 11:18
PROVIDERS: PCP Family Medicine; Visit Provider Surgery
DX: R92.8 Other abnormal and inconclusive findings on diagnostic imaging of breast (principal); N63.22 Unspecified lump in the left breast, upper inner quadrant
CPT/HCPCS: 76641; 77062; 77066; G0279

== ENCOUNTER 2024-10-30 11:02 | Outpatient (CLI) | payer OTHER, SELFPAY ==
--- NOTE | ~2024-10-30 | US_ITS ---
EXAMINATION TYPE: US breast LT limited COMPARISON: 05/30/2024 REASON FOR STUDY: N63.25 - Unspecified lump in the left breast, overlapping... TECHNIQUE: Targeted sonographic evaluation of the left breast was performed. INTERPRETATION: At the 12:00 position left breast, 2 cm in the upper, there is a 6 x 7 x 3 mm hypoechoic masses is wi uma than tall. Several additional adjacent more rounded cysts or smaller hypoechoic masses are also p resent in this region. IMPRESSION: 6 x 7 x 3 mm hypoechoic mass at 12:00 position left breast, 2 cm unremarkable, with somewhat differen t morphology, but no overtly aggressive imaging features or significant increase in size. Additional six-month follow-up ultrasound advised. BI-RADS CATEGORY: BI-RADS 3: Probably benign. Six-month follow-up exam recommended Reviewed, dictated and finalized at location . IMPRESSION: 6 x 7 x 3 mm hypoechoic mass at 12:00 position left breast, 2 cm unremarkable, with somewhat different morphology, but no overtly aggressive imaging features or significant increase in size. Additional six-month follow-up ultrasound advi sed. BI-RADS CATEGORY: BI-RADS 3: Probably benign. Six-month follow-up exam recommended
--- OUTSIDE RECORDS SUMMARY | 2024-10-30 11:41 | XMS_ITS | Continuity of Care Document ---
Author Organization [facility] Address [address] [place] [address] Phone Care Team Providers Care Electric Stove Mechanic Name Role Phone Pruitt OD, Unavailable Unavailable Procedures Procedure Date Eye Exam & Treatment Refraction Eye Exam, New Patient Refraction Advance Directives Directive Yes / No Effective Date File Name No Information Encounters Encounter Description Practice Location Reason(s) For Visit Diagnoses Date Provider Providers Copied on Encounter [facility], [address] [place] [address] [address], [place], [place], [id number], tel:[phone] [facility] No Information Mar-2 0-201 0 Pruitt OD . [address], [place], [address], [place]. tel:[phone] [facility], [address] [place] [address] [address], [place], [place], [id number], tel:[phone] [facility] No Information Mar-0 7-200 9 Pruitt OD . [address], [place], [address], [place]. tel:[phone] Family History Family Member Type Diagnosis Age At Onset No Information Payers Payer name Insurance type Covered republican ID Authoriza tielzbieta(s) [employer] Plan 09 [id number] Social History Type Description Quantity Date Captured [...]
--- OUTSIDE RECORDS SUMMARY | 2024-10-30 11:41 | XMS_ITS | Clinical Summary ---
Author Organization [facility] [place] Address [address] [place] [address] Phone Care Team Providers Care Academic Coach Name Role Phone Unavailable Primary Care Provider Unavailabl e Allergies No known active allergies Medications No known medications Active Problems Patient Care Coordination No te Formatting of this note migh t be different from the original. Primary Care: No primary provider on file. 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 Gender Identity Not on file Sexual Orientation Not on file Last Filed Vital Signs Vital Sign Reading Time Taken Comments Blood Pressure 140/76 02/02/2011 10:23 AM CDT Pulse - - Temperature - - Respiratory Rate - - Oxygen Saturation - - Inhaled Oxygen Concentration - - Weight 62.1 kg (137 lb) 02/02/2011 10:23 AM CDT Height 160 cm (5' 3) 02/02/2011 10:23 AM CDT Body Mass Index 24.27 02/02/2011 10:23 AM CDT Plan of Treatment Health Maintenance Due Date Last Done Comments DTAP/TDAP/TD VACCINES (1 - Tdap) 1982 HPV/Cotest (21-29) 1984 CERVICAL CANCER SCREENING 1993 HPV/Cotest (30-65) 1993 PAP SMEAR 1993 COLORECTAL SCREENING 2008 Colorectal Cancer Screening 2008 FIT-DNA Q 3 years 2008 FIT/FOBT Q 1 year 2008 Flex Sig/CT Colonography Q 5 years 2008 BREAST CANCER SCREENING 01/24/2012 01/24/20 11, 04/29/2009, 02/13/2008 ZOSTER VACCINE (1 of 2) 2013 INFLUENZA VACCINE (#1) 2023 RSV VACCINE (60+ or ) (1 - 1-dose 75+ series) 2038 Procedures Procedure Name Priority Date/Time Associated Diagnosis Comments MAMMO SCREEN BILAT W OR WO CAD Routine 01/23/2011 from Last 3 Months or Most Recently Relevant to Health Maintenance Results * MAMMO DIGITAL SCREEN BILAT (01/23/2011) Anatomical Region Laterality Modality Breast Bilateral Other Nila Rizzo MD MAMMO ORDERABLES Final R esult from Last 3 Months or Most Recently Relevant to Health Maintenance Insurance Member Subscriber Plan / Payer (Ef fective 2020-Present) Name:Mary Pressley Relation to Subscriber:Spouse Name:MAXIME PRESSLEY Date of :1958 (Home) Address: [address] [place] [address] Payer ID:[id number] (NAIC) Type:[facility] Address: [facility] [id number] [place] [address]
--- OUTSIDE RECORDS SUMMARY | 2024-10-30 11:41 | XMS_ITS | Clinical Summary ---
Author Organization [facility] Address [address] [place] [address] Care Team Providers Care Wheat Farmer Name Role Phone Unavailable Primary Care Provider Unavailabl e Source Comments [facility],non-owned Affiliates and Associated Physician Practices is amultiple site organization consisting of ambulatory clinics and hospital sitesin [place], [place]. This disclosure is being madepursuant to the Care Everywhere program and may not contain all information available regarding this patient. Last updated 18.[facility] Social History Tobacco Use Types Packs/Day Years Used Date Smoking Tobacco: Never Assessed Comments Unknown Sex and Gender Information Value Date Recorded Sex Assigned at Not on file Legal Sex Female 6:17 AM CHILD CARE ASSOCIATE Gender Identity Not on file Sexual Orientation [...] SCREENING 1963 LIPID TESTING 1963 MAMMOGRAM 1963 HIV SCREENING 1978 HEPATITIS C SCREENING 06/11/1981 DTAP/TDAP/TD VACCINES (1 - Tdap) 1982 PNEUMOCOCCAL VACCINE 50+ (1 of 1 - PCV) 2013 ZOSTER VACCINE (1 of 2) 2013 COVID-19 VACCINE ( - 2023-2 5 season) 2024 DEPRESSION SCREENING 05/03/2024 INFLUENZA VACCINE (Season Ended) 2025 Respiratory Syncytial Virus (RSV) Vaccine Pt: or [...] to complete this topic MENINGOCOCCAL (Group B) VACC INE SHARED DECISION-MAKING Aged Out No longer eligibl e based on patient's age to complete this topic MENINGOCOCCAL GROUPS A/C/Y/W VACCINE Aged Out No longer eligible b ased on patient's age to complete this topic Insurance
--- OUTSIDE RECORDS SUMMARY | 2024-10-30 11:41 | XMS_ITS | Referral Summary ---
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
--- OUTSIDE RECORDS SUMMARY | 2024-10-30 11:41 | XMS_ITS | Clinical Summary ---
Author Organization [facility] Address [address] [place] [address] Care Team Providers Care [employer] Superintendent Name Role Phone Irena Robin MD Primary Care Provider + Allergies No known active allergies Medications cholecalciferol (VITAMIN D-3) 2,000 unit tablet Take 2,000 Units by mouth daily. Active Active Problems Problem Noted Date Diagnosed Date NICK (dyspnea on exertion) 09/20/2017 Palpitations 09/20/2017 Elevated blood pressure read ing in office without diagnosis of hypertension 09/20/2017 Dyslipidemia 09/20/2017 Surgical History Surgery Date Site/Laterality Comments AR TONSILLECTOMY PRIMARY/SECONDARY <AGE 10 Tonsillectomy - (Added by Conv) AR LIG/TRNSXJ FLP TUBE ABDL/ VAG APPR UNI/BI Tubal Ligation - (Added by TW Conv) AR LAPS ABD PRTM&OMENTUM DX W/WO SPEC BR/WA SPX Laparoscopy (Diagnostic) - (Added by TW Conv) AR UNLISTED PROCEDURE ABDOME N PERITONEUM & OMENTUM [...] on file Legal Sex Female 3:12 AM 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
== END 2024-10-30 11:03 | disposition home or self-care (01) ==
LOC: ANHIMG 11:03
PROVIDERS: PCP Family Medicine; Visit Provider Surgery
DX: N63.25 Unspecified lump in the left breast, overlapping quadrants (principal); R92.8 Other abnormal and inconclusive findings on diagnostic imaging of breast
CPT/HCPCS: 76642